=== PATIENT | male | born 1985 | race Caucasian/White ===

== ENCOUNTER 2018-07-02 12:40 | Emergency (ER) | payer OTHER ==
[~2018-07-02] VITALS: Ht 182.9 cm; Wt 83.9 kg
[2018-07-02] MEDS ORDERED: Amoxicillin500 MG PO (13:06)
== END 2018-07-02 13:09 | disposition home or self-care (01) ==
LOC: ER 12:40
DX: K04.7 Periapical abscess without sinus (principal); K02.9 Dental caries, unspecified; F17.210 Nicotine dependence, cigarettes, uncomplicated
CPT/HCPCS: 41800; 99282-25